=== PATIENT | female | born 1985 | race Caucasian/White ===

== ENCOUNTER → 2017-10-19 | Outpatient (CLI) | payer OTHER ==
--- NOTE | 2017-10-20 08:07 | US ---
EXAMINATION TYPE: US OB anatomy transabd DATE OF EXAM: 10/19/2017 COMPARISON: NONE HISTORY: Z3A.22 22 weeks gestation of TECHNIQUE: EXAM MEASUREMENTS: GESTATIONAL AGE / DATING Physician Established: (22 weeks/3 days) EDC: 02/18/2018 Dates by LMP: (22 weeks/3 days) EDC: 02/18/2018 Dates by First Scan: No prior Dates by Current Scan for: (22 weeks/4 days) EDC: 02/19/2018 SURVEY IUP: Single PLACENTA: Posterior PREVIA: Low Lying TOSHIA: 12.3 cm Normal CERVICAL LENGTH (transabdominal: norm > 3.0cm): 3.6 cm BIOMETRY PRESENTATION: Breech BPD: 5.4 cm 22 weeks / 4 days HC: 20.3 cm 22 weeks / 4 days AC: 17.3 cm 22 weeks / 2 days FL: 3.8 cm 22 weeks / 2 days ESTIMATED WEIGHT IN GRAMS: 487 grams ESTIMATED WEIGHT IN LBS/OZ: 1 lbs. 1 oz. WEIGHT PERCENTAGE BASED ON ESTABLISHED DATE: 28 % HC/AC: 1.17 Normal FL/AC: 22 Normal HEART RATE: 153 bpm RHYTHM: Normal ANATOMY SEEN (within normal limits): * Lateral Vent (< 1 cm) 0.6 cm * Cisterna Magna (< 1.1 cm) 0.6 cm * Nuchal Fold (< 0.6 cm) 0.2 cm * Cerebellum (varies with age) 2.3 cm Choroid Plexus (bilateral) Midline Falx Cavus Septi Pellucidi Four Chamber Heart Outflow tracts: LVOT/RVOT Stomach Situs Nose / Lips Diaphragm Kidneys (bilateral) Bladder Cord Insert Three Vessel Cord Longitudinal Spine Transverse Spine Arms (bilateral) Legs (bilateral) IMPRESSION: Single, viable IUP/ No abnormality visualized with anatomy at this time/ Low-lying placenta
== END | disposition home or self-care (01) ==
LOC: RADUSWWP 16:09
PROVIDERS: ATTEND Family Medicine
DX: Z36.9 Encounter for antenatal screening, unspecified (principal); Z3A.22 22 weeks gestation of pregnancy
CPT/HCPCS: 76811